=== PATIENT | male | born 1995 | race American Indian/Alaskan Native ===

== ENCOUNTER 2020-08-11 17:25 | Emergency (ER) | payer MEDICAID ==
[2020-08-11 17:56] VITALS: BP 116/48
[2020-08-11] MEDS ORDERED: TETANUS,DIPH,PERTUSS(ACELL) VACCINE 0.5 ML SYRINGE IM ONE (20:25)
[2020-08-11] MEDS ORDERED: ACETAMINOPHEN 325 MG TAB PO ONE (20:25)
[2020-08-11] MEDS ORDERED: LIDOCAINE (1%) 10 MG/1 ML VIAL 20 ML MDV INFILTRATI ONE (20:26)
--- NOTE | 2020-08-11 21:04 | Emergency Department Report ---
ED Head Trauma HPI - General Chief complaint: Laceration/Recheck/Suture Stated complaint: LIP LAC Time Seen by Provider: 08/11/20 20:25 Source: patient Mode of arrival: Ambulatory Limitations: No Limitations - History of Present Illness Initial comments: Patient is a 24-year-old male presents emergency room complaints of a head injury that occurred earlier today. Patient states he was moving some metal racks at work. He states that one of the rocks fell and hit him across the face and caused a laceration above his lip. He denies any loss of consciousness but states he felt a little woozy afterwards and reports he had 3 episodes of vomiting. He states he has associated headache. He reports that he feels better now. He denies any vision changes, numbness, weakness, bowel or bladder incontinence, any other injury. He is unsure of his last tetanus immunization. No past medical history. No allergies to medications. - Related Data Previous Rx's Medication Instructions Recorded Last Taken Type cephALEXin [Keflex] 500 mg PO QID 7 Days #28 cap 08/11/20 Unknown Rx Allergies/Adverse reactions: Allergies Allergy/AdvReac Type Severity Reaction Status Date / Time No Known Allergies Allergy Unverified 08/11/20 17:53 ED Review of Systems ROS: Stated complaint: LIP LAC Other details as noted in HPI Comment: All other systems reviewed and negative ED Past Medical Hx - Past Medical History Previous Medical History?: No - Medications Home Medications: Home Medications Medication Instructions Recorded Confirmed Last Taken Type cephALEXin [Keflex] 500 mg PO QID 7 Days #28 cap 08/11/20 Unknown Rx ED Physical Exam - General Limitations: No Limitations General appearance: alert, in no apparent distress - Head Head exam: Present: other (3 cm irregular laceration present above the upper lip, no muscle/tendon involvement, no facial bony or skull bony) - Eye Eye exam: Present: normal appearance, PERRL, EOMI. Absent: periorbital swelling, periorbital tenderness - ENT ENT exam: Present: mucous membranes moist, other (no obvious loose teeth) - Neck Neck exam: Present: normal inspection, full ROM. Absent: tenderness, meningismus - Neurological Exam Neurological exam: Present: alert, oriented X3 - Psychiatric Psychiatric exam: Present: normal affect, normal mood - Skin Skin exam: Present: warm, dry ED Course Vital Signs 08/11/20 08/11/20 08/11/20 17:55 20:41 21:41 Temperature 98.5 F Pulse Rate 107 H Respiratory 18 18 18 Rate Blood Pressure 116/48 [Right] O2 Sat by Pulse 97 Oximetry 08/11/20 22:45 Temperature Pulse Rate 87 Respiratory 18 Rate Blood Pressure [Right] O2 Sat by Pulse 98 Oximetry - Laceration /Wound Repair Face Wound Location: face (above the upper lip) Wound Length (cm): 3 Wound's Depth, Shape: irregular Wound Explored: clean Irrigated w/ Saline (ccs): 100 Betadine Prep?: Yes Anesthesia: 1% Lidocaine Volume Anesthetic (ccs): 8 Wound Debrided: moderate Wound Repaired With: sutures Suture Size/Type: 5:0, proline Number of Sutures: 7 Layer Closure?: No Sterile Dressing Applied?: Yes Progress: Verbal consent obtained by patient Risk and alternatives discussed Wound irrigated with saline and thoroughly scrubbed with Betadine, no muscle or tendon involvement, no signs of foreign body, bilateral infraorbital block performed with 1% of lidocaine and a total of 8 cc was used, with anesthesia achieved, Betadine prep again, sterile drapes applied, sterile gloves worn, 5-0 Prolene used for skin closure, patient tolerated well, no complications, bleeding controlled, dressing applied - Lab Data Vital Signs 08/11/20 08/11/20 08/11/20 17:55 20:41 21:41 Temperature 98.5 F Pulse Rate 107 H Respiratory 18 18 18 Rate Blood Pressure 116/48 [Right] O2 Sat by Pulse 97 Oximetry 08/11/20 22:45 Temperature Pulse Rate 87 Respiratory 18 Rate Blood Pressure [Right] O2 Sat by Pulse 98 Oximetry - Radiology Data Radiology results: report reviewed Ordering Physician: AJ TURNER Date of Service: 08/11/20 Procedure(s): CT facial bones wo con Accession Number(s): [id number] cc: AJ TURNER CT facial bones wo con INDICATION / CLINICAL INFORMATION: 24 years Male; head injury, facial injury. TECHNIQUE: Thin cut axial images obtained. Sagittal and coronal reconstructions performed. All CT scans at this location are performed using CT dose reduction for ALARA by means of automated exposure control. COMPARISON: None available. FINDINGS: Subcutaneous soft tissue swelling seen in the upper lip region. No signs of underlying bony trauma. Orbital silva are intact. Mucous retention cyst/polyps seen in the right maxillary antrum. IMPRESSION: 1. No definitive signs of acute bony facial trauma. Signer Name: Albaro Lau MD, III Signed: 08/11/2020 9:01 PM Workstation Name: [id number] Transcribed By: Dictated By: Albaro Lau MD Electronically Authenticated By: Albaro Lau MD Signed Date/Time: 08/11/202100 DD/ 58 TD/TT: Print Cancel Ordering Physician: AJ TURNER Date of Service: 08/11/20 Procedure(s): CT head/brain wo con Accession Number(s): [id number] cc: AJ TURNER . CT head/brain wo con INDICATION / CLINICAL INFORMATION: 24 years Male; head injury, vomiting. TECHNIQUE: Routine CT head without contrast. All CT scans at this location are performed using CT dose reduction for ALARA by means of automated exposure control. COMPARISON: None. FINDINGS: BRAIN / INTRACRANIAL CONTENTS: No acute hemorrhage, mass effect, midline shift, hydrocephalus, or acute, large territorial infarct. No signs of significant atrophy or chronic infarct. No significant white matter abnormality seen. CRANIOCERVICAL JUNCTION: No significant abnormality. ORBITS: No significant abnormality of visualized orbits. SINUSES / MASTOIDS: Mucous retention cyst/polyp seen in the right maxillary antrum. ADDITIONAL FINDINGS: None. IMPRESSION: 1. No focal mass, hemorrhage, hydrocephalus, or acute, large territorial infarct. Signer Name: Albaro Lau MD, III Signed: 08/11/2020 8:59 PM Workstation Name: [id number] Transcribed By: Dictated By: Albaro Lau MD Electronically Authenticated By: Albaro Lau MD Signed Date/Time: 08/11/202058 DD/ 57 TD/TT: - Medical Decision Making Patient is a 24-year-old male presents emergency room complaints of a head injury that occurred earlier today. Patient states he was moving some metal racks at work. He states that one of the rocks fell and hit him across the face and caused a laceration above his lip. He denies any loss of consciousness but states he felt a little woozy afterwards and reports he had 3 episodes of vomiting. He states he has associated headache. He reports that he feels better now. He denies any vision changes, numbness, weakness, bowel or bladder incontinence, any other injury. He is unsure of his last tetanus immunization. No past medical history. No allergies to medications. on exam: 3 cm irregular laceration present above the upper lip, no muscle/tendon involvement, no facial bony or skull bony. CT facial bones: 1. No definitive signs of acute bony facial trauma. CT head: 1. No focal mass, hemorrhage, hydrocephalus, or acute, large territorial infarct. Laceration repaired per procedure note without any complications. Patient given prescription for Keflex. Patient given Tdap on the emergency department. Advised patient Please take medication as prescribed. Please keep area clean, dry, covered. Wash with antibacterial soap and water and pat dry. No hot tub, no pool, no soaking in water. Showering is fine. Sutures need to be removed in 7 days. Follow-up with your primary care doctor for examination. Return to emergency room medially for any new or worse symptoms. Critical care attestation.: If time is entered above; I have spent that time in minutes in the direct care of this critically ill patient, excluding procedure time. ED Disposition Clinical Impression: Laceration of face Qualifiers: Encounter type: initial encounter Qualified Code(s): S01.81XA - Laceration without foreign body of other part of head, initial encounter Head injury Qualifiers: Encounter type: initial encounter Qualified Code(s): S09.90XA - Unspecified injury of head, initial encounter Disposition: DC- TO HOME OR SELFCARE Is pt being admited?: No Does the pt Need Aspirin: No Condition: Stable Instructions: Head Injury, Adult, Laceration Care, Adult Additional Instructions: Please take medication as prescribed. Please keep area clean, dry, covered. Wash with antibacterial soap and water and pat dry. No hot tub, no pool, no soaking in water. Showering is fine. Sutures need to be removed in 7 days. Follow-up with your primary care doctor for examination. Return to emergency room medially for any new or worse symptoms. Prescriptions: cephALEXin [Keflex] 500 mg PO QID 7 Days #28 cap Referrals: RAFA AKERS MD [Primary Care Provider] - 2-3 Days Time of Disposition: 22:22 Print Language: BAHRAINI
--- NOTE | 2020-08-11 21:04 | Cat Scan Report ---
. CT head/brain wo con INDICATION / CLINICAL INFORMATION: 24 years Male; head injury, vomiting. TECHNIQUE: Routine CT head without contrast. All CT scans at this location are performed using CT dos e reduction for ALARA by means of automated exposure control. COMPARISON: None. FINDINGS: BRAIN / INTRACRANIAL CONTENTS: No acute hemorrhage, mass effect, midline shift, hydrocephalus, or acu te, large territorial infarct. No signs of significant atrophy or chronic infarct. No significant whi te matter abnormality seen. CRANIOCERVICAL JUNCTION: No significant abnormality. ORBITS: No significant abnormality of visualized orbits. SINUSES / MASTOIDS: Mucous retention cyst/polyp seen in the right maxillary antrum. ADDITIONAL FINDINGS: None. IMPRESSION: 1. No focal mass, hemorrhage, hydrocephalus, or acute, large territorial infarct. Signer Name: Albaro Lau MD, III Signed: 08/11/2020 8:59 PM Workstation Name: [id number]
== END 2020-08-11 22:45 | disposition home or self-care (01) ==
LOC: ED 17:25
DX: S01.81XA Laceration without foreign body of other part of head, initial encounter (principal); S09.90XA Unspecified injury of head, initial encounter; Z79.899 Other long term (current) drug therapy; W22.8XXA Striking against or struck by other objects, initial encounter; Y93.89 Activity, other specified; Y92.89 Other specified places as the place of occurrence of the external cause; Y99.8 Other external cause status
CPT/HCPCS: 70450; 70486; 90471; 90715

== ENCOUNTER 2020-08-18 14:53 | Emergency (ER) | payer MEDICAID ==
[2020-08-18 15:49] VITALS: BP 136/88
--- NOTE | 2020-08-18 16:19 | Emergency Department Report ---
Suture/Staple Removal - HPI Chief Complaint: Laceration/Recheck/Suture Stated Complaint: SUTURE REMOVAL Time Seen by Provider: 08/18/20 16:09 When Sutures or Leo Placed: 08/11/20 Wound Location: above the left lip ED Review of Systems ROS: Stated complaint: SUTURE REMOVAL Other details as noted in HPI Comment: All other systems reviewed and negative ED Past Medical Hx - Past Medical History Previous Medical History?: No - Surgical History Past Surgical History?: No - Medications Home Medications: Home Medications Medication Instructions Recorded Confirmed Last Taken Type cephALEXin [Keflex] 500 mg PO QID 7 Days #28 cap 08/11/20 Unknown Rx Neomycin/Bacitracin/Polymyxinb 1 applicatio TP BID #14 oint...g. 08/18/20 Unknown Rx [Triple Antibiotic Ointment] Suture Removal Exam - Exam General: Vital signs noted. No distress. Alert and acting appropriately. Wound: No Pathologic Erythema, No Tenderness, No Drainage, No Pus, No Wound Dehiscence Other Systems: All other systems reviewed and are unremarkable. ED Course Vital Signs 08/18/20 15:46 Temperature 98.1 F Pulse Rate 85 Respiratory 20 Rate Blood Pressure 136/88 [Right] O2 Sat by Pulse 98 Oximetry ED Recheck MDM - Medical Decision Making Patient presents for suture removal to left upper lip. No signs of infection or wound dehiscence, there is still some scabbing present. All sutures removed without any difficulty or complications. Advised patient to please use medication as prescribed. Follow-up with your primary care doctor for reexamination. Return to emergency room for new or worsening symptoms. Critical care attestation.: If time is entered above; I have spent that time in minutes in the direct care of this critically ill patient, excluding procedure time. ED Disposition Clinical Impression: Encounter for removal of sutures Disposition: DC-01 TO HOME OR SELFCARE Is pt being admited?: No Does the pt Need Aspirin: No Condition: Stable Instructions: Suture Removal, Care After Additional Instructions: please use medication as prescribed. Follow-up with your primary care doctor for reexamination. Return to emergency room for new or worsening symptoms. Prescriptions: Neomycin/Bacitracin/Polymyxinb [Triple Antibiotic Ointment] 1 applicatio TP BID #14 oint...g. Referrals: [facility] [Provider Group] - 2-3 Days NILES NORMAN MD [Staff Physician] - 2-3 Days Time of Disposition: 16:20 Print Language: VINCENTIAN
== END 2020-08-18 16:29 | disposition home or self-care (01) ==
LOC: ED 14:53
DX: S01.511D Laceration without foreign body of lip, subsequent encounter (principal); Z48.02 Encounter for removal of sutures; Z79.899 Other long term (current) drug therapy; X58.XXXD Exposure to other specified factors, subsequent encounter